=== PATIENT | female | born 1980 | race Two or more races ===

== ENCOUNTER 2020-10-24 07:17 | Outpatient (CLI) | payer OTHER | END 2020-10-24 07:38 | disposition home or self-care (01) | LOC: SONOGRAMA 07:17 | PROVIDERS: ATTEND Specialist | DX: N83.01 Follicular cyst of right ovary (principal); E28.8 Other ovarian dysfunction ==

== ENCOUNTER 2021-07-02 09:08 | Emergency (ER) | payer OTHER ==
[~2021-07-02] VITALS: Ht 165.1 cm; Wt 99.8 kg
[2021-07-02] MEDS ORDERED: SINGULAIR10 MG PO (09:18)
== END 2021-07-02 19:03 | disposition home or self-care (01) ==
LOC: ER 09:08
DX: R10.84 Generalized abdominal pain (principal); R93.89 Abnormal findings on diagnostic imaging of other specified body structures

== ENCOUNTER 2021-08-25 07:56 | Inpatient (IN) | payer OTHER ==
[~2021-08-25] VITALS: Ht 165.1 cm; Wt 90.7 kg
[~2021-08-25 07:56] MED LIST: SINGULAIR10 MG PO
[2021-08-26] MEDS ORDERED: ULTRACET PO (08:16)
== END 2021-08-26 11:45 | disposition home or self-care (01) | DRG 743 ==
LOC: CIR.AMB 07:56 → OB/GYN 13:49 → O/R 13:49 → OB/GYN 14:04
PROVIDERS: ADMIT Obstetrics & Gynecology Gynecology; ATTEND Obstetrics & Gynecology Gynecology
PROC: 0UT14ZZ Resection of Left Ovary, Percutaneous Endoscopic Approach (ICD-10-PCS; 2021-08-25)
PROC: 0T788DZ Dilation of Bilateral Ureters with Intraluminal Device, Via Natural or Artificial Opening Endoscopic (ICD-10-PCS; 2021-08-25)
PROC: 0DNN4ZZ Release Sigmoid Colon, Percutaneous Endoscopic Approach (ICD-10-PCS; 2021-08-25)
PROC: 0DN84ZZ Release Small Intestine, Percutaneous Endoscopic Approach (ICD-10-PCS; 2021-08-25)
PROC: 0UT64ZZ Resection of Left Fallopian Tube, Percutaneous Endoscopic Approach (ICD-10-PCS; principal; 2021-08-25 10:30)
DX: N80.1 Endometriosis of ovary (principal); Z20.822 Contact with and (suspected) exposure to COVID-19; K66.0 Peritoneal adhesions (postprocedural) (postinfection)

== ENCOUNTER 2022-06-03 09:39 | Emergency (ER) | payer OTHER ==
[~2022-06-03] VITALS: Ht 165.1 cm; Wt 77.1 kg
[~2022-06-03 09:39] MED LIST changes: +ULTRACET PO
[2022-06-03] MEDS ORDERED: GABAPENTIN300 M2 PO (10:08)
[2022-06-03] MEDS ORDERED: CIPRO500 MG PO (14:39)
[2022-06-03] MEDS ORDERED: METRONIDAZOLE500 MG PO (14:39)
== END 2022-06-03 15:21 | disposition home or self-care (01) ==
LOC: ER 09:39
DX: K57.92 Diverticulitis of intestine, part unspecified, without perforation or abscess without bleeding (principal); Z91.013 Allergy to seafood; Z88.6 Allergy status to analgesic agent

== ENCOUNTER 2022-06-04 06:11 | Emergency (ER) | payer OTHER ==
[~2022-06-04] VITALS: Ht 165.1 cm; Wt 77.1 kg
[~2022-06-04 06:11] MED LIST changes: +CIPRO500 MG PO; +GABAPENTIN300 M2 PO; +METRONIDAZOLE500 MG PO
== END 2022-06-05 08:53 | disposition home or self-care (01) ==
LOC: ER 06:11
DX: K57.92 Diverticulitis of intestine, part unspecified, without perforation or abscess without bleeding (principal); Z88.6 Allergy status to analgesic agent; Z91.013 Allergy to seafood; Z20.822 Contact with and (suspected) exposure to COVID-19

== ENCOUNTER 2023-01-28 19:23 | Emergency (ER) | payer OTHER ==
[~2023-01-28] VITALS: Ht 165.1 cm; Wt 79.4 kg
== END 2023-01-29 10:04 | disposition home or self-care (01) ==
LOC: ER 19:23
PROVIDERS: General Practice
DX: K57.32 Diverticulitis of large intestine without perforation or abscess without bleeding (principal); Z91.013 Allergy to seafood; Z88.6 Allergy status to analgesic agent; I10 Essential (primary) hypertension; R10.32 Left lower quadrant pain

== ENCOUNTER 2025-01-12 08:23 | Inpatient (IN) | payer OTHER ==
[~2025-01-12] VITALS: Ht 162.6 cm; Wt 72.6 kg
--- NOTE | 2025-01-12 08:46 | NUR ---
PACIENTE ALERTA Y ORIENTADA X3. REFIERE COMENZAR CON LLQ ABDOMINAL PAIN DESDE HACE DOS ROMERO. SE ASTRID S/V Y SE UBICA.
[2025-01-12] MEDS ORDERED: METRONIDAZOLE/SODIUM CHLORIDE 500 MG/100 ML PIGGYBACK IV ONE (09:00)
[2025-01-12] MEDS ORDERED: 0.9 % SODIUM CHLORIDE 1,000 ML IV SCH ×2 (09:00→17:45)
[2025-01-12] MEDS ORDERED: CIPROFLOXACIN IN 5 % DEXTROSE 400 MG/200 ML PIGGYBAG IV ONE (09:00)
[2025-01-12] MEDS ORDERED: MORPHINE SULFATE 4 MG/ML VIAL IV ONE ×2 (09:00→15:45)
[2025-01-12 09:19] LABS: BASO % 0.4 % (0.1-1.2); EOS # 0.16 (0.04-0.54); EOS % 1.4 % (0.7-7.0); LYMPH # 2.13 (1.18-3.74); LYMPH % 18.7 % (19.3-53.1); MEAN PLATELET VOLUME 10.70 fl (9.4-12.4); MONO # 0.73 (0.24-0.82); MONO % 6.4 % (4.7-12.5); NEUT # 8.30 (1.56-6.13); NEUT % 72.8 % (34.0-71.1); RED CELL DISTRIBUTION WIDTH 13.4 % (11.6-14.4)
--- NOTE | 2025-01-12 09:27 | NUR ---
PTE EVALUADO POR DR. PRYOR PRESENTANDO DOLOR PELVICO Y ABDOMINAL, SE COLECTAN MUESTRAS DE ANETA BAJO MEDIDAS ASEPTICAS Y SE ADMINISTRA MEDICACION ARCENIO ORDEN MEDICA. CLIENTE ES ORIENTADO SOBRE PROCEDIMIENTOS REALIZADOS Y PROCESO DE RE-EVALUACION MEDICA. PTE ASTRID CONTRASTE ORAL PARA REALIZACION DE ESTUDIO RADIOLOGICO.
[2025-01-12 09:49] LABS: BUN CREA RATIO 11.0 (7.0-25.0); CREATININE SERUM 0.76 mg/dL (0.55-1.02); GFR 82.67; GLUCOSE FASTING 94.0 mg/dL (65-100); OSMOLALITY SERUM 281.0 MOSM/KG (275-295)
[2025-01-12 10:00] LABS: URINE APPEARANCE Clear; URINE BILIRRUBIN Negative (NEGATIVE); URINE BLOOD Negative; URINE COLOR Yellow; URINE GLUCOSE Negative (NEGATIVE); URINE KETONE Negative (NEGATIVE); URINE LEUKOCYTE Negative; URINE NITRATE Negative; URINE PROTEIN Negative (NEGATIVE); URINE UROBILINOGEN 0.2 E.U./dl
[2025-01-12 10:04] LABS: URINE EPITHELIAL CELLS 2.4 uL (0.0-38.8); URINE RBC 5.1 uL (0.0-20.8)
[2025-01-12 10:14] LABS: URINE BACTERIA 2.3 uL (0.0-1933); URINE CAST 0.00 uL (0.0-1.40); URINE WBC 1.0 uL (0.0-23.2)
--- NOTE | 2025-01-12 16:00 | NUR ---
SE ORIENTA A PACIENTE SOBRE TX MEDICO 7Y PAUL REFIERE ENTENDER Y ACEPTAR EL MISMO. SE PROCEDE A ADMINISTRAR MEDICAMENTO ARCENIO ORDEN MEDICA BAJO MEDIDAS ASEPTICAS. SE ASTRID S/V A PACIENTE ANTES DE ADMINISTRAR MEDICAMENTO.
[2025-01-12 16:54] VITALS: BP 107/71
[2025-01-12] MEDS ORDERED: FAMOTIDINE/PF 20 MG in 0.9 % SODIUM CHLORIDE 8 ML IV PUSH SCH (17:34)
[2025-01-12] MEDS ORDERED: ACETAMINOPHEN 500 MG GEL..CAP PO PRN (17:45)
[2025-01-12] MEDS ORDERED: ONDANSETRON HCL 4 MG in 0.9 % SODIUM CHLORIDE 50 ML IV PRN (17:45)
[2025-01-12] MEDS ORDERED: MORPHINE SULFATE 4 MG/ML CARTRIDGE IV PRN (17:45)
[2025-01-12] MEDS ORDERED: PIPERACILLIN/TAZOBACTAM SODIUM 3.375 GM in DEXTROSE 5 % IN WATER 100 ML IV SCH (18:00)
[2025-01-12 18:39] LABS: INR 1.16
[2025-01-12] MEDS ORDERED: MORPHINE SULFATE 2 MG/ML CARTRIDGE IV SCH (20:00)
[2025-01-12 22:00] VITALS: BP 113/77; O2SAT 97
[2025-01-13 03:06] VITALS: BP 109/67; O2SAT 97
[2025-01-13 10:36] VITALS: BP 103/70; O2SAT 98
[2025-01-13 17:29] VITALS: BP 109/67; O2SAT 98
[2025-01-14 02:38] VITALS: BP 109/71; O2SAT 98
[2025-01-14 10:15] VITALS: BP 111/73; O2SAT 97
[2025-01-14 17:53] VITALS: BP 125/79; O2SAT 92
[2025-01-15 03:13] VITALS: BP 111/74; O2SAT 96
[2025-01-15 09:16] VITALS: BP 109/75; O2SAT 98
== END 2025-01-15 15:19 | disposition home or self-care (01) | DRG 391 ==
LOC: ER 08:23 → MEDJ 17:55
PROVIDERS: Emergency Medicine; General Practice; ADMIT Student in an Organized Health Care Education/Training Program; ATTEND Student in an Organized Health Care Education/Training Program
PROC: BW21ZZZ Computerized Tomography (CT Scan) of Abdomen and Pelvis (ICD-10-PCS; principal; 2025-01-12)
DX: K57.32 Diverticulitis of large intestine without perforation or abscess without bleeding (principal); K65.8 Other peritonitis; J45.909 Unspecified asthma, uncomplicated; E11.9 Type 2 diabetes mellitus without complications; Z79.4 Long term (current) use of insulin

== ENCOUNTER 2025-04-12 11:15 | Inpatient (IN) | payer OTHER ==
[~2025-04-12] VITALS: Ht 162.6 cm; Wt 74.8 kg
[2025-04-17] MEDS ORDERED: LIDOCAINE HCL 1%/EPINEPHRINE 20ML VIAL IJ ONE (06:53)
[2025-04-17] MEDS ORDERED: BUPIVACAINE HCL/MPF 0.5% 30ML VIAL ONE (06:53)
[2025-04-17] MEDS ORDERED: METRONIDAZOLE/SODIUM CHLORIDE 500 MG/100 ML PIGGYBACK IV ONE (07:02)
[2025-04-17] MEDS ORDERED: CEFTRIAXONE SODIUM 2,000 MG VIAL ONE (07:02)
[2025-04-17] MEDS ORDERED: ALBUTEROL SULFATE 3 ML/2.5 MG AMPUL.NEB IH SCH (13:06)
[2025-04-17] MEDS ORDERED: ENALAPRILAT DIHYDRATE 1.25 MG/ML VIAL IV PRN (13:15)
[2025-04-17] MEDS ORDERED: ALBUTEROL SULFATE 3 ML/2.5 MG AMPUL.NEB IH ONE (13:18)
[2025-04-17] MEDS ORDERED: MORPHINE SULFATE 4 MG/ML CARTRIDGE IV PRN (13:30)
[2025-04-17] MEDS ORDERED: OxyCODONE HCL 5 MG TABLET (ROXICODONE) PO PRN (13:30)
[2025-04-17] MEDS ORDERED: RINGERS SOLUTION,LACTATED 1,000 ML IV SCH (13:30)
[2025-04-17] MEDS ORDERED: ONDANSETRON HCL 2 MG/ML VIAL IV PRN (13:30)
[2025-04-17] MEDS ORDERED: ACETAMINOPHEN 500 MG GEL..CAP PO SCH (14:00)
[2025-04-17 14:20] VITALS: BP 131/84; O2SAT 97
[2025-04-17 14:41] LABS: BASO % 0.2 % (0.1-1.2); EOS # 0.01 (0.04-0.54); EOS % 0.1 % (0.7-7.0); LYMPH # 1.20 (1.18-3.74); LYMPH % 7.5 % (19.3-53.1); MEAN PLATELET VOLUME 11.20 fl (9.4-12.4); MONO # 0.98 (0.24-0.82); MONO % 6.1 % (4.7-12.5); NEUT # 13.76 (1.56-6.13); NEUT % 85.9 % (34.0-71.1); RED CELL DISTRIBUTION WIDTH 13.2 % (11.6-14.4)
[2025-04-17] MEDS ORDERED: HYOSCYAMINE SULFATE 0.125 MG TAB.SUBL SL SCH (17:00)
[2025-04-17] MEDS ORDERED: CELECOXIB 200 MG CAPSULE PO SCH (17:00)
[2025-04-17] MEDS ORDERED: SIMETHICONE 125 MG CAPSULE PO SCH (17:00)
[2025-04-17] MEDS ORDERED: METOCLOPRAMIDE HCL 5 MG/ML VIAL IV SCH (17:00)
[2025-04-17] MEDS ORDERED: GABAPENTIN 300 MG CAPSULE PO SCH (17:00)
[2025-04-17] MEDS ORDERED: FAMOTIDINE/PF 20 MG/2 ML VIAL IV PUSH SCH (21:00)
[2025-04-18 00:30] VITALS: BP 131/76; O2SAT 100
[2025-04-18 07:45] LABS: BUN CREA RATIO 12.0 (7.0-25.0); CREATININE SERUM 0.68 mg/dL (0.55-1.02); GFR 93.99; GLUCOSE FASTING 117.0 mg/dL (65-100); OSMOLALITY SERUM 281.0 MOSM/KG (275-295)
[2025-04-18 08:03] LABS: BASO % 0.3 % (0.1-1.2); EOS # 0.00 (0.04-0.54); EOS % 0.0 % (0.7-7.0); LYMPH # 1.22 (1.18-3.74); LYMPH % 10.0 % (19.3-53.1); MEAN PLATELET VOLUME 10.80 fl (9.4-12.4); MONO # 1.10 (0.24-0.82); MONO % 9.0 % (4.7-12.5); NEUT # 9.85 (1.56-6.13); NEUT % 80.3 % (34.0-71.1); RED CELL DISTRIBUTION WIDTH 13.1 % (11.6-14.4)
[2025-04-18] MEDS ORDERED: LACTULOSE 20 G/30 ML BLIST.PACK PO SCH (09:00)
[2025-04-18] MEDS ORDERED: LACTOBACILLUS ACIDOPHILUS 1 CAP CAP PO SCH (09:00)
[2025-04-18 15:30] VITALS: BP 115/74; O2SAT 95
[2025-04-18] MEDS ORDERED: ENOXAPARIN SODIUM 40 MG/0.4 ML SYRINGE SUBCUTANEO SCH (17:00)
[2025-04-19 01:59] VITALS: BP 133/83; O2SAT 95
[2025-04-19 06:53] LABS: BASO % 0.3 % (0.1-1.2); EOS # 0.38 (0.04-0.54); EOS % 3.3 % (0.7-7.0); LYMPH # 1.72 (1.18-3.74); LYMPH % 15.1 % (19.3-53.1); MEAN PLATELET VOLUME 10.70 fl (9.4-12.4); MONO # 0.84 (0.24-0.82); MONO % 7.4 % (4.7-12.5); NEUT # 8.36 (1.56-6.13); NEUT % 73.6 % (34.0-71.1); RED CELL DISTRIBUTION WIDTH 13.3 % (11.6-14.4)
[2025-04-19 07:14] LABS: BUN CREA RATIO 11.0 (7.0-25.0); CREATININE SERUM 0.57 mg/dL (0.55-1.02); GFR 115.22; GLUCOSE FASTING 92.0 mg/dL (65-100); OSMOLALITY SERUM 284.0 MOSM/KG (275-295)
[2025-04-19] MEDS ORDERED: ENOXAPARIN SODIUM 40 MG/0.4 ML SYRINGE SUBCUTANEO SCH (09:00)
== END 2025-04-19 13:26 | disposition home or self-care (01) | DRG 330 ==
LOC: SURG 04-17 06:00 → O/R 04-17 06:00 → SURH 04-17 11:00 → SURG 04-17 14:47
PROVIDERS: Internal Medicine Geriatric Medicine; ADMIT Colon & Rectal Surgery; ATTEND Colon & Rectal Surgery
PROC: 0DBP4ZZ Excision of Rectum, Percutaneous Endoscopic Approach (ICD-10-PCS; 2025-04-17)
PROC: 0DT84ZZ Resection of Small Intestine, Percutaneous Endoscopic Approach (ICD-10-PCS; 2025-04-17)
PROC: 0DJD8ZZ Inspection of Lower Intestinal Tract, Via Natural or Artificial Opening Endoscopic (ICD-10-PCS; 2025-04-17)
PROC: 3E0F7GC Introduction of Other Therapeutic Substance into Respiratory Tract, Via Natural or Artificial Opening (ICD-10-PCS; 2025-04-17)
PROC: 0DTN4ZZ Resection of Sigmoid Colon, Percutaneous Endoscopic Approach (ICD-10-PCS; principal; 2025-04-17 11:00)
DX: K57.32 Diverticulitis of large intestine without perforation or abscess without bleeding (principal); R65.10 Systemic inflammatory response syndrome (SIRS) of non-infectious origin without acute organ dysfunction; K57.92 Diverticulitis of intestine, part unspecified, without perforation or abscess without bleeding; N73.6 Female pelvic peritoneal adhesions (postinfective); N80.9 Endometriosis, unspecified; R10.32 Left lower quadrant pain; J45.20 Mild intermittent asthma, uncomplicated